=== PATIENT | female | born 1965 | race African-American/Black ===

== ENCOUNTER 2017-08-01 18:42 | Emergency (ER) | payer MEDICAID ==
[~2017-08-01] VITALS: Ht 165.1 cm; Wt 75.3 kg
[2017-08-01 19:21] LABS: Basophils # (auto) 0.1 uL; Basophils % (auto) 0.8 % (0.0-2.0); Eosinophils # (auto) 0.2 uL; Eosinophils % (auto) 2.9 % (0.0-7.0); Lymphocytes # (auto) 2.2 uL; Lymphocytes % (auto) 32.5 % (10.0-50.0); Mean Corpuscular Hemoglobin 28.7 pg (28.0-32.0); Mean Corpuscular Hgb Conc. 33.4 g/dL (32.0-36.0); Mean Corpuscular Volume 85.9 fL (80.0-100.0); Mean Platelet Volume 8.4 fL (6.9-10.8); Monocytes # (auto) 0.5 uL; Monocytes % (auto) 6.6 % (0.0-12.0); Neutrophils # (auto) 3.9 uL; Neutrophils % (auto) 57.2 % (37.0-80.0); Platelet Count (auto) 224 10^3/uL (140-450); Red Cell Distribution Width 13.5 % (11.8-14.3); White Blood Cell 6.9 10^3/uL (4.4-10.8)
[2017-08-01 19:33] LABS: INR 0.94 (0.9-1.15); Partial Thromboplastin Time 25.9 sec (22.64-33.71); Prothrombin Time 10.2 sec (9.37-12.3)
[2017-08-01 19:46] LABS: Albumin 3.6 g/dL (3.4-5.0); Alkaline Phosphatase 81 U/L (45-117); Anion Gap 6 (5-15); Aspartate Aminotransferase 15 U/L (15-37); BUN/Creatinine Ratio 18.9; Bilirubin, Total 0.4 mg/dL (0.2-1.0); Blood Urea Nitrogen 20 mg/dL (7-18); Calcium 8.9 mg/dL (8.5-10.1); Carbon Dioxide 29 mmol/L (21-32); Chloride 107 mmol/L (98-107); GFR African American 70 mL/min; GFR Non-African American 58 mL/min; Glucose 96 mg/dL (74-106); Potassium 3.9 mmol/L (3.5-5.1); Sodium 142 mmol/L (136-145); Total Protein 7.9 g/dL (6.4-8.2)
[2017-08-01 22:36] VITALS: BP 195/81
[2017-08-01 23:12] LABS: Urine Bilirubin Negative (Negative); Urine Blood Negative /uL (Negative); Urine Color Yellow (Yellow); Urine Glucose Normal (Normal); Urine Ketone Negative (Negative); Urine Nitrite Negative (Negative); Urine RBC 1 /hpf (0 - 4); Urine Squamous Epithelial Cell FEW /hpf (<5); Urine Urobilinogen Normal (Negative)
== END 2017-08-01 23:47 | disposition home or self-care (01) ==
LOC: ER 18:51
DX: R07.89 Other chest pain (principal); I16.0 Hypertensive urgency; Z88.6 Allergy status to analgesic agent; R51 Headache; Z79.82 Long term (current) use of aspirin
CPT/HCPCS: 36415; 71010; 80053; 81001; 84484; 85025; 85610; 85730; 93005

== ENCOUNTER 2018-04-14 13:24 | Emergency (ER) | payer SELFPAY ==
[~2018-04-14] VITALS: Ht 162.6 cm; Wt 90.7 kg
[2018-04-14 13:53] VITALS: BP 149/82
[2018-04-14] MEDS ORDERED: KETOROLAC TROMETH 60MG/2ML VIAL IM ONE (14:00)
== END 2018-04-14 14:52 | disposition home or self-care (01) ==
LOC: ER 13:24
DX: S76.012A Strain of muscle, fascia and tendon of left hip, initial encounter (principal); S46.912A Strain of unspecified muscle, fascia and tendon at shoulder and upper arm level, left arm, initial encounter; Z88.6 Allergy status to analgesic agent; W18.39XA Other fall on same level, initial encounter; Y93.89 Activity, other specified; Y92.89 Other specified places as the place of occurrence of the external cause; Y99.8 Other external cause status
CPT/HCPCS: 73030; 73502; 96372; 99284; J1885